=== PATIENT | female | born 1950 | race Caucasian/White ===

== ENCOUNTER → 2018-06-30 | Outpatient (CLI) | payer OTHER ==
[~2018-06-30] MED LIST: ANTI-INFLAMMATORY; BIRTH CONTROL MED; CLOP75 PO; DIPASPER PO; SPIHYD; UNK BP MED
== END | disposition home or self-care (01) ==
LOC: LAB 17:57 → LAB SHORT 17:57
DX: L02.611 Cutaneous abscess of right foot (principal)
CPT/HCPCS: 87070; 87205

== ENCOUNTER 2019-07-02 15:47 | Emergency (ER) | payer OTHER ==
[~2019-07-02] VITALS: Ht 152.4 cm; Wt 57.6 kg
[2019-07-02] MEDS ORDERED: Simvastatin10 MG (15:59)
[2019-07-02] MEDS ORDERED: Mobic15 MG PO (16:00)
[2019-07-02] MEDS ORDERED: AMOCLA875 PO (17:57)
== END 2019-07-02 18:10 | disposition home or self-care (01) ==
LOC: ER 15:47
DX: S61.052A Open bite of left thumb without damage to nail, initial encounter (principal); I10 Essential (primary) hypertension; Z86.73 Personal history of transient ischemic attack (TIA), and cerebral infarction without residual deficits; Z79.899 Other long term (current) drug therapy; Z79.1 Long term (current) use of non-steroidal anti-inflammatories (NSAID); W53.21XA Bitten by squirrel, initial encounter
CPT/HCPCS: 90375; 90376; 90471; 90472; 90714; 96372; 99283-25

== ENCOUNTER 2019-07-09 00:06 | Day surgery (SDC) | payer OTHER ==
[~2019-07-09 00:06] MED LIST changes: +AMOCLA875 PO; +Mobic15 MG PO; +Simvastatin10 MG
== END 2019-07-09 14:54 | disposition home or self-care (01) ==
LOC: ATC 00:06
DX: S60.372A Other superficial bite of left thumb, initial encounter (principal); I10 Essential (primary) hypertension; Z86.73 Personal history of transient ischemic attack (TIA), and cerebral infarction without residual deficits; Z79.899 Other long term (current) drug therapy; W53.21XA Bitten by squirrel, initial encounter
CPT/HCPCS: 90471

== ENCOUNTER 2019-07-23 01:09 | Day surgery (SDC) | payer OTHER | END 2019-07-23 10:18 | disposition home or self-care (01) | LOC: ATC 01:09 | DX: Z29.14 Encounter for prophylactic rabies immune globulin (principal); S60.37 Other superficial bite of thumb; W53.21XD Bitten by squirrel, subsequent encounter; I10 Essential (primary) hypertension; Z86.73 Personal history of transient ischemic attack (TIA), and cerebral infarction without residual deficits; Z79.899 Other long term (current) drug therapy | CPT/HCPCS: 90471 ==

== ENCOUNTER → 2019-09-14 | Outpatient (CLI) | payer OTHER ==
[2019-09-16 15:07] LABS: HPV 16 Negative (Negative); HPV 18 Negative (Negative); HPV OTHER HR TYPES Negative (Negative)
== END | disposition home or self-care (01) ==
LOC: LAB 19:43 → LAB SHORT 19:43
PROVIDERS: Obstetrics & Gynecology Gynecology
DX: Z91.89 Other specified personal risk factors, not elsewhere classified (principal)
CPT/HCPCS: 87624; G0123

== ENCOUNTER → 2021-06-26 | Outpatient (CLI) | payer OTHER ==
[2021-06-26 19:43] LABS: Alanine Aminotransfer (ALT/SGP 32 U/L (12-78); Albumin, Blood 4.6 g/dL (3.4-5.0); Albumin/Globulin Ratio 1.2 (0.8-1.8); Alk Phos 55 U/L (50-136); Anion Gap 9 mmol/L (6-16); Aspartate Aminotrans (AST/SGOT 28 U/L (12-37); Bilirubin, Total 0.8 mg/dL (0.1-1.0); Blood Urea Nitrogen 10 mg/dL (8-24); Bun/Creatinine Ratio 13.1 (12.0-20.0); CHOL/HDL RATIO 3.4; CO2, Blood 24 mmol/L (21-32); Calcium, Blood 9.4 mg/dL (8.5-10.1); Chloride, Blood 103 mmol/L (98-108); Cholesterol 208 mg/dL (50-200); Creatinine, Blood 0.76 mg/dL (0.40-1.00); Globulin, Blood 3.8 g/dL (2.2-4.0); Glomerular Filtration Rate >60 (60-); Glucose, Blood 85 mg/dL (70-99); HDL Cholesterol 61 mg/dL (>39); LDL/HDL RATIO 2.1; Low Density Lipoprotein Chol 126 mg/dL (0-110); Potassium, Blood 3.8 mmol/L (3.5-5.5); Sodium, Blood 136 mmol/L (136-145); Total Protein, Blood 8.4 g/dL (6.4-8.2); Triglycerides 107 mg/dL (30-160); Very Low Density Lipoprot Chol 21 mg/dL (6-32)
== END | disposition home or self-care (01) ==
LOC: LAB SHORT 12:35
PROVIDERS: Family Medicine
DX: E78.5 Hyperlipidemia, unspecified (principal); I10 Essential (primary) hypertension; E16.2 Hypoglycemia, unspecified
CPT/HCPCS: 80053; 80061

== ENCOUNTER → 2022-10-24 | Outpatient (CLI) | payer MEDICARE | END | disposition home or self-care (01) | LOC: PLD 10:54 → LAB SHORT 10:54 → LAB 10:54 | DX: L57.0 Actinic keratosis (principal) | CPT/HCPCS: 88305 ==

== ENCOUNTER → 2023-06-02 | Outpatient (CLI) | payer MEDICARE | END | disposition home or self-care (01) | LOC: PLD 09:14 → LAB 09:14 → LAB SHORT 09:14 | DX: D48.5 Neoplasm of uncertain behavior of skin (principal) | CPT/HCPCS: 88305 ==